=== PATIENT | male | born 1935 | race Caucasian/White ===

== ENCOUNTER 2017-11-05 22:59 | Emergency (ER) | payer SELFPAY ==
[2017-11-05 23:04] VITALS: BP 169/89
--- NOTE | 2017-11-05 23:26 | EDPHY ---
General Time Seen by Provider: 11/05/17 23:07 Narrative: CHIEF COMPLAINT: Tick bite HISTORY OF PRESENT ILLNESS: Patient presents with son with complaints of tick bite. This is present on the back left side of his neck. It occurred sometime today while they were out walking through [employer]. The pulled the tick off but were unable to remove the entire tick. He has no complaints of any kind other than this. He is traveling from [place] up to [place] where he is moving to. His son lives here with him. No other associated complaints or modifying factors. TIME OF INJURY: Earlier today MEDICAL/SURGICAL/SOCIAL HISTORY: Uncomplicated medical history. Lives independently. REVIEW OF SYSTEMS: Ten systems reviewed and are negative unless otherwise noted in the HPI EXAMINATION General Appearance: Alert, no distress Head: normocephalic, atraumatic Neck: Supple and nontender. No meningismus. Painless range of motion all planes. Cardiovascular: Pulses normal throughout. Regular rhythm with no murmur. Brisk cap refill Neurological: A&O, sensory symmetric, strength symmetric Skin: Warm and dry, no rash. There is a small portion of the head of the tick present the left posterior neck that was removed without difficulty. No rash. Extremities: Nontender, no pedal edema DIFFERENTIAL DIAGNOSES: Including but not limited to tick bite, [place] spotted fever, Lyme disease MDM: 11:25 p.m. Tick bite to the left posterior neck that likely occurred today. This was Definitely in place less than 24 hr with no signs of infection. The take was brought with them is very small, not engorged. I do not feel he warrants prophylaxis. He is comfortable this appear to be discharged home with strict ED precautions for any headache, neck pain or stiffness, fever chills, rash of any kind. He is comfortable with this plan and discharged in stable condition. SUPERVISION: This patient was independently evaluated without direct involvement of or examination by the attending physician. ED Precautions: Worsening pain. Erythema, edema, cyanosis, pallor, paresthesia or anesthesia. - History Smoking Status: Current every day smoker - Objective Vital Signs: Initial Vital Signs Temperature (C) 98.2 F 11/05/17 23:00 Heart Rate 84 11/05/17 23:00 Respiratory Rate 11 L 11/05/17 23:00 Blood Pressure 169/89 H 11/05/17 23:00 O2 Sat (%) 95 11/05/17 23:00 O2 Delivery Mode Room Air Allergies/Adverse Reactions: No Known Allergies Allergy (Unverified 11/05/17 23:04) Departure - Departure Disposition: Home, Routine, Self-Care Clinical Impression: Tick bite of neck Qualifiers: Encounter type: initial encounter Qualified Code(s): S10.96XA - Insect bite of unspecified part of neck, initial encounter; W57.XXXA - Bitten or stung by nonvenomous insect and other nonvenomous arthropods, initial encounter; W57.XXXA - Bitten or stung by nonvenomous insect and other nonvenomous arthropods, initial encounter Condition: Good Instructions: Tick Bite (ED) Additional Instructions: 1. Follow up with physician upon arrival to [place] 2. ED precautions for rash, headache, neck pain or stiffness, fever, body aches , joint pain Referrals: Emir Clarke MD [Medical Doctor] - As per Instructions
== END 2017-11-05 23:49 | disposition home or self-care (01) ==
DX: S10.96XA Insect bite of unspecified part of neck, initial encounter (principal); F17.200 Nicotine dependence, unspecified, uncomplicated; W57.XXXA Bitten or stung by nonvenomous insect and other nonvenomous arthropods, initial encounter; Y99.8 Other external cause status